=== PATIENT | female | born 2000 | race Caucasian/White ===

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

== ENCOUNTER 2023-09-07 06:07 | Inpatient (IN) | payer MEDICAID, OTHER ==
[~2023-09-07] VITALS: Ht 162.6 cm; Wt 61.2 kg
[2023-09-07 06:12] VITALS: BP_SYST 173; PULSE 94; RESP 16; TEMP 98.2; O2SAT 99
[2023-09-07] MEDS ORDERED: LORazepam 2 MG/ML VIAL ONE (06:25)
[2023-09-07] MEDS ORDERED: iohexoL 350 mgI/mL, 100 ML INFUS..BTL IV ONE (06:31)
[2023-09-07] MEDS: LORazepam 2 MG/ML VIAL IVP ONE (06:47)
[2023-09-07 06:51] LABS: BASOPHILS % (AUTO) 0.5 % (0.0-2.0); EOSINOPHILS # (AUTO) 0.1 K/uL (0.0-0.4); EOSINOPHILS % (AUTO) 1.4 % (0.0-4.0); HEMOGLOBIN 13.8 g/dL (12.0-16.0); LYMPHOCYTES # (AUTO) 2.7 K/uL (1.0-5.5); LYMPHOCYTES % (AUTO) 38.4 % (20.5-51.5); MEAN CORPUSCULAR HEMOGLOBIN 31 pg (27-31); MEAN CORPUSCULAR HGB CONC 35 % (32-36); MEAN CORPUSCULAR VOLUME 91 fL (79.0-98.0); MONOCYTES # (AUTO) 0.4 K/uL (0.0-1.0); MONOCYTES % (AUTO) 5.1 % (1.7-9.3); NEUTROPHILS # (AUTO) 3.8 K/uL (1.8-7.7); NEUTROPHILS % (AUTO) 54.6 % (40.0-70.0); PLATELET COUNT (AUTO) 351 K/uL (130-430); RED BLOOD CELL COUNT(AUTO) 4.41 MIL/uL (4.2-6.2); RED CELL DISTRIBUTION WIDTH 12.8 % (9.0-15.0)
[2023-09-07] MEDS: ONDANSETRON HCL 4 MG/2 ML VIAL IVP ONE (07:20)
[2023-09-07] MEDS: ACETAMINOPHEN 325 MG TABLET PO ONE (07:20)
[2023-09-07 07:36] LABS: PROTHROMBIN TIME 10.1 SECS (9.5-12.5)
[2023-09-07 07:46] LABS: HEMOGLOBIN A1C 5.2 % (<5.7)
[2023-09-07 07:50] LABS: ANION GAP 9 (5-15); CALCIUM 9.1 mg/dL (8.4-11.0); CARBON DIOXIDE 28 mmol/L (23-29); CHLORIDE 98 mmol/L (98-107); CHOLESTEROL 194 mg/dL (<200); CREATININE 0.82 mg/dL (0.55-1.30); GFR AFRICAN AMERICAN 110 mL/min (>90); GLUCOSE 108 mg/dL (74-106); HDL CHOLESTEROL 63 mg/dL (>55); POTASSIUM 3.8 mmol/L (3.5-5.1); SODIUM SERUM 135 mmol/L (136-145); TRIGLYCERIDES 162 mg/dL (30-150); UREA NITROGEN, BLOOD 13 mg/dL (8-21)
[2023-09-07 07:52] LABS: ALCOHOL, BLOOD < 3 mg/dL (<10); GFR NON AFRICAN-AMERICAN 91 mL/min (>90)
[2023-09-07] MEDS: ASPIRIN 81 MG TAB.CHEW PO ONE (08:02)
[2023-09-07] MEDS ORDERED: ONDANSETRON HCL 4 MG/2 ML VIAL IVP PRN (08:30)
[2023-09-07] MEDS ORDERED: MORPHINE 2 MG/ML INJ. SYRINGE IVP PRN (08:30)
[2023-09-07] MEDS ORDERED: ACETAMINOPHEN 325 MG TABLET PO PRN ×2 (08:30)
[2023-09-07] MEDS ORDERED: PROP10TA10 PO (08:49)
[2023-09-07] MEDS ORDERED: ALPR0.255 PO (08:49)
[2023-09-07] MEDS ORDERED: SERT-131 PO (08:49)
[2023-09-07] MEDS ORDERED: THIAMINE HCL 200 MG/2 ML VIAL ONE (09:01)
[2023-09-07] MEDS: NACL 0.9% 1,000 ML IV SCH (09:26)
[2023-09-07] MEDS: THIAMINE HCL 100 MG in NS 50 ML IV ONE (09:27)
[2023-09-07] MEDS: PANTOPRAZOLE SODIUM 40 MG/VIAL (PROTONIX) IVP ONE (09:27)
[2023-09-07] MEDS: chlordiazePOXIDE HCL 25 MG CAPSULE PO SCH (09:27)
[2023-09-07 10:18] LABS: HCG,QUAL RESULT NEGATIVE (NEGATIVE)
[2023-09-07 10:21] LABS: BILIRUBIN,URINE NEGATIVE (NEGATIVE); CLARITY/URINE CLEAR (CLEAR); COLOR,URINE YELLOW (YELLOW); GLUCOSE,URINE NEGATIVE (NEGATIVE); KETONES,URINE NEGATIVE (NEGATIVE); LEUKOCYTE ESTERASE ,URINE NEGATIVE (NEGATIVE); NITRITE, URINE NEGATIVE (NEGATIVE); PROTEIN URINE NEGATIVE (NEGATIVE); UROBILINOGEN,URINE 0.2 (0.2-1.0)
[2023-09-07 10:23] LABS: BLOOD, URINE TRACE (NEGATIVE)
[2023-09-07 10:27] VITALS: BP_SYST 129; PULSE 74; RESP 15; TEMP 97.1; O2SAT 96
[2023-09-07 10:28] VITALS: O2SAT 97
[2023-09-07 10:39] LABS: BARBITURATE, URINE NEGATIVE (NEG <=200); BENZODIAZEPINE, URINE POSITIVE (NEG <=150); COCAINE, URINE NEGATIVE (NEG <=150); METHAMPHETAMINES SCREEN,URINE NEGATIVE (NEG <=500); URINE AMPHETAMINE NEGATIVE (NEG <=500); URINE METHADONE NEGATIVE (NEG <=200)
[2023-09-07 10:40] LABS: CANNABINOID, URINE POSITIVE (NEG <=50); OPIATE, URINE NEGATIVE (NEG <=100); PHENCYCLIDINE SCREEN,URINE NEGATIVE (NEG <=25); UR TRICYCLIC ANTIDEPRESSANTS NEGATIVE (NEG <=300); URINE OXYCODONE SCREEN NEGATIVE (NEG <=100)
[2023-09-07 10:47] LABS: RBC,URINE 0-3 /HPF (0-3); WBC,URINE NONE SEEN /HPF (0-3)
[2023-09-07 10:48] LABS: BACTERIA,URINE None Seen /HPF (None Seen)
[2023-09-07] MEDS: MULTIVITAMINS TAB 1 TABLET PO SCH (11:10)
[2023-09-07 15:05] VITALS: BP_SYST 146; PULSE 92; RESP 16; TEMP 97; O2SAT 98
[2023-09-07 15:34] VITALS: BP_SYST 131; PULSE 78; RESP 16; TEMP 97.8; O2SAT 96
[2023-09-07] MEDS: HYDROcodone/ACETAMIN 7.5-325 MG TAB PO PRN (16:50)
[2023-09-07 20:00] VITALS: BP_SYST 110; PULSE 75; RESP 17; TEMP 97.5; O2SAT 97
[2023-09-07] MEDS: MELATONIN 5 MG TABLET PO SCH (21:01)
[2023-09-08] VITALS: BP_SYST 112; PULSE 79; RESP 16; TEMP 98; O2SAT 98
[2023-09-08 06:45] LABS: ALBUMIN 3.1 g/dL (3.4-4.8); CALCIUM 8.9 mg/dL (8.4-11.0); CREATININE 0.81 mg/dL (0.55-1.30); POTASSIUM 4.8 mmol/L (3.5-5.1); TOTAL BILIRUBIN 0.3 mg/dL (0.0-1.0); TOTAL PROTEIN, SERUM 6.8 g/dL (6.4-8.3)
[2023-09-08 06:55] LABS: BASOPHILS % (AUTO) 0.2 % (0.0-2.0); EOSINOPHILS # (AUTO) 0.1 K/uL (0.0-0.4); EOSINOPHILS % (AUTO) 1.3 % (0.0-4.0); HEMATOCRIT 37.6 % (36-48); HEMOGLOBIN 13.1 g/dL (12.0-16.0); LYMPHOCYTES # (AUTO) 2.1 K/uL (1.0-5.5); LYMPHOCYTES % (AUTO) 38.2 % (20.5-51.5); MEAN CORPUSCULAR HEMOGLOBIN 31 pg (27-31); MEAN CORPUSCULAR HGB CONC 35 % (32-36); MEAN CORPUSCULAR VOLUME 90 fL (79.0-98.0); MONOCYTES # (AUTO) 0.3 K/uL (0.0-1.0); MONOCYTES % (AUTO) 6.1 % (1.7-9.3); NEUTROPHILS % (AUTO) 54.2 % (40.0-70.0); PLATELET COUNT (AUTO) 269 K/uL (130-430); RED BLOOD CELL COUNT(AUTO) 4.16 MIL/uL (4.2-6.2); RED CELL DISTRIBUTION WIDTH 12.9 % (9.0-15.0); WHITE BLOOD COUNT (AUTO) 5.6 K/uL (4.8-10.8)
[2023-09-08 08:25] VITALS: BP_SYST 116; PULSE 70; RESP 16; TEMP 98.6; O2SAT 99
[2023-09-08 09:20] VITALS: O2SAT 99
[2023-09-08] MEDS: LORazepam 2 MG/ML VIAL IVP PRN (09:40)
[2023-09-08 16:45] VITALS: BP_SYST 122; PULSE 71; RESP 16; TEMP 97.4; O2SAT 99
[2023-09-08 20:00] VITALS: BP_SYST 122; PULSE 82; RESP 17; TEMP 97.8; O2SAT 99
[2023-09-09] VITALS: BP_SYST 118; PULSE 78; RESP 16; TEMP 98; O2SAT 99
[2023-09-09 08:30] VITALS: O2SAT 99
[2023-09-09 11:52] VITALS: BP_SYST 111; PULSE 86; RESP 16; TEMP 97.4; O2SAT 100
[2023-09-09 13:21] VITALS: BP_SYST 111; PULSE 86; RESP 16; TEMP 97.4; O2SAT 100
== END 2023-09-09 13:48 | disposition home or self-care (01) | DRG 103 ==
LOC: SED 06:07 → STU 08:25
PROVIDERS: ADMIT Student in an Organized Health Care Education/Training Program; ATTEND Student in an Organized Health Care Education/Training Program
DX: G43.909 Migraine, unspecified, not intractable, without status migrainosus (principal); G45.9 Transient cerebral ischemic attack, unspecified; G90.8 Other disorders of autonomic nervous system; F32.A Depression, unspecified; F10.10 Alcohol abuse, uncomplicated; F19.90 Other psychoactive substance use, unspecified, uncomplicated; F41.9 Anxiety disorder, unspecified; Z91.013 Allergy to seafood
CPT/HCPCS: 36415; 70450; 70496; 70498; 70551; 71045; 80048; 80053; 80061; 80307; 81000; 81001; 81015; 82948; 83037; 83735; 84100; 84484; 84703; 85025; 85610; 85730; 86886; 86900; 86901; 93005; 97112-GP; 97116-GP; 99291; C9113; G0378; G0482; J2060; J2405; J3411; Q9967